=== PATIENT | female | born 1960 | race Caucasian/White ===

== ENCOUNTER → 2020-10-15 | Day surgery (SDC) | payer MEDICARE ==
[~2020-10-15] MED LIST: ASPIRIN325 MG PO; BACLOFEN 10MG T10 MG PO; CITALOPRAM HBR40 MG PO; CLONAZEPAM0.5 MG PO; DIVALPROEX SOD500 MG PO; NEURONTIN300 MG PO; ZOCOR40 MG PO
== END | disposition home or self-care (01) ==
LOC: FAS 10:17
DX: Z12.11 Encounter for screening for malignant neoplasm of colon (principal); K57.30 Diverticulosis of large intestine without perforation or abscess without bleeding; K63.5 Polyp of colon; K64.8 Other hemorrhoids; F17.200 Nicotine dependence, unspecified, uncomplicated; E78.5 Hyperlipidemia, unspecified; K21.9 Gastro-esophageal reflux disease without esophagitis; F32.9 Major depressive disorder, single episode, unspecified; I69.351 Hemiplegia and hemiparesis following cerebral infarction affecting right dominant side; Z79.82 Long term (current) use of aspirin; Z79.899 Other long term (current) drug therapy; Z80.0 Family history of malignant neoplasm of digestive organs; Z86.010 Personal history of colon polyps
CPT/HCPCS: 88305; J2250; J2704; J7120